=== PATIENT | female | born 1985 | race African-American/Black ===

== ENCOUNTER 2017-09-20 17:26 | Inpatient (IN) | payer OTHER ==
[2017-09-20] VITALS (11 sets, daily range): BP systolic 132–175; BP diastolic 63–98
[~2017-09-20] VITALS: Ht 172.7 cm; Wt 134.2 kg
[2017-09-20] MEDS ORDERED: HUMALOG100 UNIT/1 SC ×3 (18:04→18:06)
[2017-09-20] MEDS ORDERED: BASAGLAR K100 UNIT/1 SC (18:06)
[2017-09-20] MEDS ORDERED: PRENATAL TABLE1 EAC3 PO (18:07)
[2017-09-20] MEDS ORDERED: ASPIR 8181 M1 PO (18:07)
[2017-09-20] MEDS ORDERED: PROCARDIA XL30 MG PO (18:08)
[2017-09-20 18:14] LABS: BASOPHIL (%) 0.2 % (0-1); EOSINOPHIL (%) 0.1 % (0-5); HEMATOCRIT 35.6 % (36.0-46.0); HEMOGLOBIN 12.2 G/DL (11.9-15.5); IMMATURE GRANULOCYTE (%) 0.4 % (0.0-0.7); LYMPHOCYTE (%) 49.3 % (15-42); LYMPHOCYTE COUNT 5.1 K/uL (1.0-2.8); MCH 28.7 PG (29.0-34.0); MCHC 34.3 G/DL (30.0-36.0); MCV 83.8 FL (83-99); MONOCYTE (%) 9.6 % (3-12); NEUTROPHIL (%) 40.4 % (45-76); NEUTROPHIL COUNT 4.1 K/uL (1.8-6.4); PLATELET COUNT 246 K/uL (156-360); RBC DIS.WIDTH-CV 13.3 % (11.8-14.6); RBC DIS.WIDTH-SD 40.7 % (39-53); RED BLOOD COUNT 4.25 M/uL (3.80-5.20); WHITE BLOOD COUNT 10.3 K/uL (4.1-10.2)
[2017-09-20 18:25] LABS: ALBUMIN 3.4 G/DL (3.2-4.8); CHLORIDE 109 MEQ/L (99-109); POTASSIUM 3.6 MEQ/L (3.7-5.4); SODIUM 140 MEQ/L (136-147); TOTAL BILIRUBIN 0.3 MG/DL (0.0-1.0)
[2017-09-20 18:55] LABS: ALKALINE PHOSPHATASE 54 IU/L (3-129); ALT (GPT) 7 IU/L (3-49); AST (GOT) 15 IU/L (2-34); CREATININE 0.6 MG/DL (0.6-1.3); GFR ESTIMATE (CALCULATED) > 59 mL/min/; GLUCOSE 73 mg/dL (70-99); TOTAL PROTEIN 6.8 G/DL (6.4-8.3); UREA NITROGEN (BUN) 11 mg/dL (9-23)
[2017-09-20 19:04] LABS: UR CREATININE CONCENTRATION 38.9 MG/DL
[2017-09-21] VITALS (13 sets, daily range): BP systolic 136–202; BP diastolic 72–120
[2017-09-22] VITALS (18 sets, daily range): BP systolic 136–183; BP diastolic 65–94
[2017-09-22 06:28] LABS: HEMATOCRIT 37.5 % (36.0-46.0); HEMOGLOBIN 12.6 G/DL (11.9-15.5); MCHC 33.6 G/DL (30.0-36.0); MCV 83.3 FL (83-99); PLATELET COUNT 271 K/uL (156-360); RBC DIS.WIDTH-CV 13.2 % (11.8-14.6); RBC DIS.WIDTH-SD 40.4 % (39-53); WHITE BLOOD COUNT 8.9 K/uL (4.1-10.2)
[2017-09-22 06:54] LABS: ALBUMIN 3.3 G/DL (3.2-4.8); ALKALINE PHOSPHATASE 57 IU/L (3-129); ALT (GPT) 7 IU/L (3-49); AST (GOT) 15 IU/L (2-34); CHLORIDE 107 MEQ/L (99-109); CREATININE 0.6 MG/DL (0.6-1.3); GFR ESTIMATE (CALCULATED) > 59 mL/min/; GLUCOSE 125 mg/dL (70-99); POTASSIUM 4.5 MEQ/L (3.7-5.4); SODIUM 138 MEQ/L (136-147); TOTAL BILIRUBIN 0.3 MG/DL (0.0-1.0); TOTAL PROTEIN 6.4 G/DL (6.4-8.3); UREA NITROGEN (BUN) 11 mg/dL (9-23)
[2017-09-22 08:45] LABS: 24 HR VOLUME 5310 MLS
[2017-09-23] VITALS (28 sets, daily range): BP systolic 129–185; BP diastolic 63–109
[2017-09-23 09:59] LABS: BASOPHIL (%) 0.3 % (0-1); EOSINOPHIL (%) 0.1 % (0-5); HEMATOCRIT 33.8 % (36.0-46.0); HEMOGLOBIN 11.2 G/DL (11.9-15.5); IMMATURE GRANULOCYTE (%) 4.2 % (0.0-0.7); LYMPHOCYTE (%) 17.6 % (15-42); LYMPHOCYTE COUNT 2.8 K/uL (1.0-2.8); MCH 28.1 PG (29.0-34.0); MCHC 33.1 G/DL (30.0-36.0); MCV 84.9 FL (83-99); MONOCYTE (%) 4.1 % (3-12); MONOCYTE COUNT 0.7 K/uL (0-0.8); NEUTROPHIL (%) 73.7 % (45-76); NEUTROPHIL COUNT 11.7 K/uL (1.8-6.4); NRBC (%) 0.3 /100 WBC (0-0); PLATELET COUNT 259 K/uL (156-360); RBC DIS.WIDTH-CV 13.5 % (11.8-14.6); RBC DIS.WIDTH-SD 42.1 % (39-53); RED BLOOD COUNT 3.98 M/uL (3.80-5.20); WHITE BLOOD COUNT 15.8 K/uL (4.1-10.2)
[2017-09-23 10:16] LABS: ALBUMIN 3.4 G/DL (3.2-4.8); CHLORIDE 109 MEQ/L (99-109); POTASSIUM 4.5 MEQ/L (3.7-5.4); SODIUM 140 MEQ/L (136-147); TOTAL BILIRUBIN 0.3 MG/DL (0.0-1.0)
[2017-09-23 10:22] LABS: ALKALINE PHOSPHATASE 52 IU/L (3-129); ALT (GPT) 7 IU/L (3-49); AST (GOT) 16 IU/L (2-34); CREATININE 0.7 MG/DL (0.6-1.3); GFR ESTIMATE (CALCULATED) > 59 mL/min/; GLUCOSE 132 mg/dL (70-99); LACTATE DEHYDROGENASE 174 IU/L (20-246); TOTAL PROTEIN 6.1 G/DL (6.4-8.3); UREA NITROGEN (BUN) 18 mg/dL (9-23); URIC ACID 5.3 mg/dL (3.1-9.2)
[2017-09-24] VITALS (27 sets, daily range): BP systolic 109–171; BP diastolic 55–92
[2017-09-25] VITALS (21 sets, daily range): BP systolic 121–176; BP diastolic 70–90
[2017-09-25 07:01] LABS: BASOPHIL (%) 0.2 % (0-1); EOSINOPHIL (%) 0 % (0-5); HEMATOCRIT 32.4 % (36.0-46.0); HEMOGLOBIN 10.5 G/DL (11.9-15.5); IMMATURE GRANULOCYTE (%) 1.1 % (0.0-0.7); LYMPHOCYTE COUNT 2.3 K/uL (1.0-2.8); MCH 27.9 PG (29.0-34.0); MCHC 32.4 G/DL (30.0-36.0); MCV 86.2 FL (83-99); MONOCYTE (%) 7.3 % (3-12); MONOCYTE COUNT 0.9 K/uL (0-0.8); NEUTROPHIL (%) 72.4 % (45-76); NEUTROPHIL COUNT 8.8 K/uL (1.8-6.4); PLATELET COUNT 240 K/uL (156-360); RBC DIS.WIDTH-CV 13.5 % (11.8-14.6); RBC DIS.WIDTH-SD 42.6 % (39-53); RED BLOOD COUNT 3.76 M/uL (3.80-5.20); WHITE BLOOD COUNT 12.2 K/uL (4.1-10.2)
[2017-09-26 03:00] VITALS: BP 147/80
[2017-09-26 08:00] VITALS: BP 139/75
[2017-09-26 11:53] VITALS: BP 155/82
[2017-09-26 17:34] VITALS: BP 146/78
[2017-09-26 20:07] VITALS: BP 162/87
[2017-09-26 23:33] VITALS: BP 149/73
[2017-09-27 04:23] VITALS: BP 135/76
[2017-09-27 19:34] VITALS: BP 140/89
[2017-09-27 22:31] VITALS: BP 163/88
[2017-09-28 03:30] VITALS: BP 135/66
[2017-09-28] MEDS ORDERED: IBUPROFEN800 MG PO (08:45)
[2017-09-28] MEDS ORDERED: LABETALOL HCL200 MG PO (08:45)
[2017-09-28] MEDS ORDERED: ENDOCET 5-3251 EACH PO (08:45)
[2017-09-28] MEDS ORDERED: NIFEDIPINE ER60 MG PO (08:45)
[2017-09-28 11:16] VITALS: BP 145/84
== END 2017-09-28 15:50 | disposition home or self-care (01) | DRG 765 ==
LOC: LDRP-OP 17:26 → 2WEST 17:29 → LDRP-OP 12-07 07:16
PROVIDERS: Advanced Practice Midwife; Obstetrics & Gynecology; Obstetrics & Gynecology Obstetrics
PROC: 10D00Z1 Extraction of Products of Conception, Low, Open Approach (ICD-10-PCS; principal; 2017-09-24)
DX: O14.14 Severe pre-eclampsia complicating childbirth (principal); O69.81X0 Labor and delivery complicated by cord around neck, without compression, not applicable or unspecified; Z3A.33 33 weeks gestation of pregnancy; E11.9 Type 2 diabetes mellitus without complications; Z79.4 Long term (current) use of insulin; O24.92 Unspecified diabetes mellitus in childbirth; O62.1 Secondary uterine inertia; Z37.0 Single live birth; O60.14X0 Preterm labor third trimester with preterm delivery third trimester, not applicable or unspecified; O99.02 Anemia complicating childbirth; O99.214 Obesity complicating childbirth; O99.344 Other mental disorders complicating childbirth; Z68.30 Body mass index [BMI] 30.0-30.9, adult; E66.9 Obesity, unspecified; D62 Acute posthemorrhagic anemia; F41.9 Anxiety disorder, unspecified
CPT/HCPCS: 76818; 80053; 81050; 82570; 82948; 83615; 84156; 84550; 85025; 85027; 86850; 86900; 86901; 87081; 88307; 90686; C1755; G0378; J0360; J0595; J0690; J0702; J1100; J1815; J2175; J2274; J2405; J2540; J3010; J3475; J7120; Q0169